=== PATIENT | male | born 1985 | race Caucasian/White ===

== ENCOUNTER 2018-05-15 06:45 | Day surgery (SDC) | payer BC, MEDICAID ==
[2018-05-15] MEDS ORDERED: SUCCINYLCHOLINE CHLORIDE 100 MG/5 ML SYG IV (07:00)
[2018-05-15] MEDS: hydrALAzine 20 MG INJ IV (07:55)
[2018-05-15] MEDS ORDERED: CEFAZOLIN 2 GM/50 ML (PMX) 50 ML IVPB (09:30)
[2018-05-15] MEDS ORDERED: SOD CHLORIDE 0.9% 1,000 ML IV (09:30)
[2018-05-15] MEDS ORDERED: GLYCOPYRROLATE 0.4 MG INJ (10:08)
[2018-05-15] MEDS ORDERED: ONDANSETRON 4 MG INJ (10:08)
[2018-05-15] MEDS ORDERED: NEOSTIGMINE 3 MG/3 ML SYRINGE (10:08)
[2018-05-15] MEDS ORDERED: ROCURONIUM 50 MG INJ (10:08)
[2018-05-15] MEDS ORDERED: CEFAZOLIN 1 GM INJ (10:08)
[2018-05-15] MEDS ORDERED: MIDAZOLAM 1 MG/ML 2 ML INJ (10:08)
[2018-05-15] MEDS ORDERED: FENTAnyl 50 MCG/ML VIAL (10:08)
[2018-05-15] MEDS ORDERED: DEXAMETHASONE 4 MG/ML 1 ML INJ (10:08)
[2018-05-15] MEDS ORDERED: PROPOFOL 20 ML (10:08)
[2018-05-15] MEDS ORDERED: IPRATROPIUM (NEB) 0.5 MG/2.5 ML AMP HHN (10:30)
[2018-05-15] MEDS ORDERED: TRIMETHOBENZAMIDE 100 MG/ML VIAL IM (10:30)
[2018-05-15] MEDS ORDERED: LABETALOL HCL 20MG INJ IV (10:30)
[2018-05-15] MEDS ORDERED: FENTAnyl 50 MCG/ML VIAL IV ×3 (10:30)
[2018-05-15] MEDS ORDERED: MEPERIDINE 25 MG INJ IV (10:30)
[2018-05-15] MEDS ORDERED: EPHEDrine SULFATE 50 MG/5 ML SYG IV (10:30)
[2018-05-15] MEDS ORDERED: DIPHENHYDRAMINE 50 MG INJ IV (10:30)
[2018-05-15] MEDS ORDERED: HYDROmorphONE 1 MG/5 ML IV SYRINGE IV ×3 (10:30)
[2018-05-15] MEDS ORDERED: OXYCODONE/ACETAMINOPHEN (5/325) TAB PO (10:30)
[2018-05-15] MEDS ORDERED: ALBUTEROL 0.083% (NEB) 2.5 MG/3 ML AMP HHN (10:30)
[2018-05-15] MEDS ORDERED: hydrALAzine 20 MG INJ IV (10:30)
[2018-05-15] MEDS ORDERED: MIDAZOLAM 1 MG/ML 2 ML INJ IV (10:30)
[2018-05-15] MEDS ORDERED: ONDANSETRON 4 MG INJ IV (10:30)
[2018-05-15] MEDS ORDERED: KETOROLAC 30 MG INJ (10:34)
[2018-05-15] MEDS: BUPIVACAINE 0.5%/EPI (SDV) 30 ML INJ (11:05)
[2018-05-15] MEDS: OXYCODONE/ACETAMINOPHEN (5/325) TAB PO (12:15)
== END 2018-05-15 13:29 | disposition home or self-care (01) ==
LOC: SDS 06:45
DX: L72.0 Epidermal cyst (principal); D22.61 Melanocytic nevi of right upper limb, including shoulder; D23.4 Other benign neoplasm of skin of scalp and neck
CPT/HCPCS: 14020; 88307; 88313